=== PATIENT | male | born 1975 | race Caucasian/White ===

== ENCOUNTER 2017-10-24 13:25 | Emergency (ER) | payer SELFPAY ==
[2017-10-24 13:47] LABS: Bilirubin Negative (Negative); Blood, Urine Large (Negative); Clarity Hazy (Clear); Glucose, Urine (Dipstick) Negative (Negative); Leukocyte Negative (Negative); Nitrite Negative (Negative); Protein, Urine (Dipstick) > or equal to 300 mg/dL (Neg-Trace)
[2017-10-24 13:48] LABS: Specific Gravity, Urine 1.025 (1.002-1.036)
[2017-10-24 13:52] LABS: RBC/HPF GREATER THAN 50-TNTC HPF (0-3)
[2017-10-24 13:53] LABS: WBC/HPF 0-3 HPF (0-3)
[2017-10-24 13:54] LABS: Bacteria/HPF Rare-Few HPF (None Seen); Squamous Epithelial 0-3 HPF (0-3)
[2017-10-24] MEDS ORDERED: Morphine 4 MG/ML VIAL ONE (14:02)
[2017-10-24] MEDS ORDERED: Acetaminophen 500 MG TAB ONE (14:03)
[2017-10-24] MEDS ORDERED: Tamsulosin HCl 0.4 MG CAP ONE (14:03)
[2017-10-24] MEDS ORDERED: Ketorolac Tromethamine 30 MG/ML VIAL ONE (14:03)
[2017-10-24 14:17] LABS: #Basophils 0.1 thou/uL (0.0-0.2); #Eosinphils 0.2 thou/uL (0.0-0.7); #Lymphocytes 2.7 thou/uL (1.20-3.40); #Monocytes 0.7 thou/uL (0.11-0.59); #Neutrophils 7.7 thou/uL (1.40-6.50); %Basophils 1.2 % (0.0-1.0); %Eosinophils 1.8 % (0.0-10.0); %Lymphocytes 23.6 % (21.0-51.0); %Monocytes 5.8 % (0.0-10.0); %Neutrophils 67.7 % (42.0-75.0); Hemoglobin 17.3 g/dL (14.0-18.0); Mean Corpuscular HGB CONC 35.8 g/dL (32.0-36.0); Mean Platelet Volume 6.8 fL (7.4-10.4); Platelet Count 254 thou/uL (130-400); RBC Distribution Width 10.6 % (11.5-14.5); Red Blood Cell (RBC) Count 5.07 mill/uL (4.70-6.10); White Blood Cell (WBC) Count 11.3 thou/uL (4.8-10.8)
[2017-10-24 14:32] LABS: Anion Gap 15 mmol/L (10-20); BUN (Urea Nitrogen) 22 mg/dL (8.9-20.6); Calc. Creatinine Clearance 0 mL/min (70-130); Calcium 10.9 mg/dL (7.8-10.44); Carbon Dioxide 24 mmol/L (22-29); Chloride 102 mmol/L (98-107); Estimated GFR-MDRD 70; Glucose 100 mg/dL (70-105); Potassium 3.7 mmol/L (3.5-5.1); Sodium 137 mmol/L (136-145)
== END 2017-10-24 16:02 | disposition home or self-care (01) ==
LOC: MADERS 13:25
DX: N20.0 Calculus of kidney (principal); F17.210 Nicotine dependence, cigarettes, uncomplicated
CPT/HCPCS: 80048; 81003; 81015; 85025; 96374; 96375; J1885; J2270

== ENCOUNTER 2020-09-12 17:59 | Emergency (ER) | payer SELFPAY ==
[2020-09-12] MEDS ORDERED: Bacitracin 1 PK ONE (18:58)
[2020-09-12] MEDS ORDERED: Boostrix 0.5 ML (Tdap) VIAL ONE (18:58)
[2020-09-12] MEDS ORDERED: Bupivacaine PF 0.5% 30 ML VIAL ONE ×2 (18:58→19:02)
[2020-09-12] MEDS ORDERED: Oseltamivir 75 MG CAP ONE (18:58)
== END 2020-09-12 19:47 | disposition home or self-care (01) ==
LOC: MADERS 17:59
DX: S61.213A Laceration without foreign body of left middle finger without damage to nail, initial encounter (principal); F17.210 Nicotine dependence, cigarettes, uncomplicated; Z79.899 Other long term (current) drug therapy; W26.9XXA Contact with unspecified sharp object(s), initial encounter
CPT/HCPCS: 12002; 90471; 90715; 99406; S0020